=== PATIENT | male | born 1980 | race Caucasian/White ===

== ENCOUNTER 2018-08-02 01:29 | Emergency (ER) | payer SELFPAY ==
[2018-08-02 01:31] VITALS: BP 138/97; PULSE 86; RESP 16; TEMP 36.8; O2SAT 100; BMI 26.6
--- NOTE | 2018-08-02 01:52 | ED.VIS.GEN ---
History of Present Illness Chief Complaint: Dental Narrative: Patient stated a few days ago he noticed he had a tooth break off to the gumline. He has had chronic decay in this tooth. It is right lower molar. He had some discomfort and swelling in that area. He does not have a dentist. He is been using ibuprofen x1 today earlier. It helped moderately. Current severity is mild. Past Medical History - Allergies and Home Meds Allergies/Adverse Reactions: Allergies No Known Allergies Allergy (Verified 08/02/18 01:30) Primary Care Physician: Care Physician,No Primary [Primary Care Provider] - Prior records reviewed: Yes Past Medical History: - - Reviewed Surgical History: noncontributory Lives: With Family Smoking Status: Never smoker Alcohol: None Drugs: None Review of Systems General: Denies: Chills, Fever, Sweats Eyes: Denies: Visual changes - bilaterally, Diplopia ENT: Reports: - - See HPI. Denies: Rhinorrhea, Sore throat Cardiovascular: Denies: Chest pain, Palpitations Respiratory: Denies: Dyspnea, Cough, Dyspnea on exertion Gastrointestinal: Denies: Abdominal pain, Nausea, Vomiting, Diarrhea, Melena, Hematochezia Genitourinary: Denies: Dysuria, Hematuria, Frequency Musculoskeletal: Denies: Back pain, Extremity Pain Skin: Denies: Rash, Wounds Neurological: Denies: Headache, Weakness, Numbness Physical Exam Vital Signs/Narrative: Vital Signs Temp Pulse Resp BP Pulse Ox 08/02/18 01:31 98.3 F 86 16 138/97 H 100 General: Well nourished, Well developed, No Acute Distress Head: Normocephalic, Atraumatic Eyes: Perrl, EOMI ENT: Moist mucous membranes, No rhinorrhea, - - She has widespread dental decay. His right lower molar has decay to the gumline. No swelling to the gums. No abscess or drainage. Tender to palpation. No ANUG or Dony's angina Neck: Supple, Nontender Cardiovascular: Regular rate, Regular rhythm, No murmurs Respiratory: No distress, CTA bilaterally, Chest nontender Abdomen: Soft, Nontender, Nondistended, Normal bowel sounds Back: Nontender, Normal Inspection Extremities: Nontender, No edema Skin: Normal color, No rash Neurological: Alert, Oriented x3, Cranial nerves II-XII grossly intact, Normal Strength, Normal Sensation Psychological: Normal affect, Normal Mood Diagnostic/Tx/Re-eval - Medical Decision Making She given Tylenol and amoxicillin and will follow up with dentistry. At this time he has a suspected infection to the dental root. He has decayed to the gumline. ED Disposition - Plan for ED Patient: Disposition: Home or Assisted Living Diagnosis: Dental infection Instructions: ED Abscess Dental Prescriptions: Amoxicillin 500 mg PO TID #20 tab Referrals: Care Physician,No Primary [Primary Care Provider] - Dentist,Your [STAFF PHYSICIAN] -
[2018-08-02] MEDS: Acetaminophen 500 MG Tablet 1000 MG PO (02:05)
[2018-08-02] MEDS: AMOXICILLIN 500 MG CAPSULE PO (02:05)
== END 2018-08-02 02:08 | disposition home or self-care (01) ==
LOC: ED 02:00
PROVIDERS: Emergency Provider Emergency Medicine; Family Provider Family Medicine; PCP Family Medicine
DX: K04.7 Periapical abscess without sinus (principal); K02.9 Dental caries, unspecified
CPT/HCPCS: 99283

== ENCOUNTER 2021-02-11 23:36 | Emergency (ER) | payer MEDICAID, SELFPAY ==
[2021-02-11 23:37] VITALS: BP 139/69; PULSE 79; RESP 16; TEMP 36.3; O2SAT 99; BMI 25.8
[2021-02-11 23:38] VITALS: BP 139/69; PULSE 79; RESP 16; TEMP 36.3; O2SAT 99
--- NOTE | 2021-02-12 00:02 | EDS_ITS ---
HPI History of Present Illness Chief Complaint: Dental Informant: patient Narrative Narrative: Worsening left-sided dental pain for the past week. Hot and cold sensitivities. No fevers. Known dental cavities. Has been trying to get in with a dentist with his insurance however they did not take this. He resents for antibiotics. Does not want any pain medicines. Prior similar symptoms: Yes PFSH PFSH Home Medications penicillin V potassium 500 mg PO 4X/DAY #40 tab 02/11/21 [Rx Last Taken Unknown] Allergy/AdvReac Type Severity Reaction Status Date / Time No Known Allergies Allergy Verified 02/11/21 23:38 Surgical History S/P partial lobectomy of lung Social History Smoking Status: Never smoker ROS ROS ED Constitutional Constitutional ED: Denies chills, fever(s) or sweats Eyes Eyes: Denies change in vision ENT ENT ED: Reports other Details: Dental pain ; Denies dysphagia or sore throat Cardiovascular Cardiovascular: Denies chest pain, leg edema, palpitations or racing heartbeat Respiratory/Chest Respiratory/Chest: Denies cough, dyspnea or dyspnea on exertion Gastrointestinal Gastrointestinal: Denies abdominal pain, diarrhea, nausea or vomiting Genitourinary Genitourinary ED: Denies dysuria, hematuria or urinary frequency Musculoskeletal Musculoskeletal: Denies back pain, extremity pain or neck pain Integumentary Denies rash or wounds Neurologic Neurologic: Denies headache(s), paresthesias or weakness EXAM Physical Exam Const Vital Signs: 02/11/21 23:37 02/11/21 23:38 Temperature 97.4 F L 97.4 F L Temperature Source Temporal Temporal Pulse Rate 79 79 Respiratory Rate 16 16 Blood Pressure 139/69 H 139/69 H Blood Pressure Mean 92 92 Pulse Ox 99 99 Positive well nourished and well developed General Appearance ED: well developed and NAD HEENT Reports moist mucous membranes HEENT Narrative: Dental cavity of tooth 13 and tooth 19. No focal abscess or fluctuance. No sublingual edema. Tender to percussion. Airway patent. No stridor. normocephalic and atraumatic Eyes PERRL, EOMs intact bilaterally and conjunctivae normal General Eye ED: Yes normal appearance of both eyes Neck no lymphadenopathy and supple General: Negative for tenderness Chest Wall Chest: Negative for tenderness Resp normal respiratory effort and normal air movement Effort and Inspection: symmetric chest movement; Negative for respiratory distress Cardio regular rate, regular rhythm and no murmurs Peripheral Pulses: pulses 2+ throughout GI normal to inspection, nondistended, normoactive bowel sounds and non-tender Palpation: Negative for guarding or rebound tenderness present Back/Spine no CVA tenderness and no thoracic nor lumbar tenderness Extremity normal to inspection General Extremety ED: Negative for edema or tenderness General Extremity: Negative for edema Neuro oriented x3 and no sensory deficits noted Sensorium / Orientation: awake and alert Skin no rashes or lesions noted and no wounds MDM MDM MDM Narrative Medical decision making narrative: Patient nontoxic vital stable presents with dental caries with pain. There is no abscess. He started on penicillin. Given dental list for follow-up. He will continue Tylenol Motrin as needed. Discharge Plan Triage Chief Complaint: Dental ED Provider: Eladio Wahl Dx/Rx/DC Orders Clinical Impression: Dentalgia, Dental caries Instructions: ED Dental Pain, ED Dental Cavity Prescriptions: New penicillin V potassium 500 MG tablet 500 mg PO 4X/DAY Qty: 40 RF: 0 Primary Care Provider: Austen Cristobal Referrals: Austen Cristobal, DO [Primary Care Provider] - Activity Restrictions/Additional Instructions: Take antibiotics as prescribed. Call from dental list for follow-up for def initive treatment. Continue Tylenol or Motrin as needed. Disposition Disposition: Home, Self Care
[2021-02-12] MEDS: Penicillin Vk 250 MG Tablet 500 MG PO (00:05)
== END 2021-02-12 00:05 | disposition home or self-care (01) ==
PROVIDERS: Emergency Provider Emergency Medicine; PCP Family Medicine
DX: K02.9 Dental caries, unspecified (principal)
CPT/HCPCS: 99283